=== PATIENT | female | born 1990 | race Caucasian/White ===

== ENCOUNTER 2023-10-06 16:44 | Emergency (ER) | payer MEDICAID, SELFPAY ==
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
[2023-10-06 16:52] VITALS: BP 136/90; PULSE 80; O2SAT 98
[2023-10-06 17:13] VITALS: BP 140/86; PULSE 76; RESP 18; TEMP 36.7; O2SAT 99; BMI 22.6
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
--- NOTE | 2023-10-06 19:03 | MHC.EDTECH ---
Staff walked by the patients room and noticed that the bed was empty and the collar was on the bed. RN aware.
[2023-10-06 19:27] VITALS: BP 140/86; PULSE 76; RESP 18; TEMP 36.7; O2SAT 99
== END 2023-10-06 19:27 | disposition left against medical advice (07) ==
PROVIDERS: Emergency Provider Internal Medicine; PCP Internal Medicine
DX: S16.1XXA Strain of muscle, fascia and tendon at neck level, initial encounter (principal); S60.211A Contusion of right wrist, initial encounter; M54.2 Cervicalgia; R51.9 Headache, unspecified; V43.52XA Car driver injured in collision with other type car in traffic accident, initial encounter; Y93.9 Activity, unspecified; Y92.410 Unspecified street and highway as the place of occurrence of the external cause; Y99.8 Other external cause status
CPT/HCPCS: 70450; 72125; 99284